=== PATIENT | male | born 1990 | race Caucasian/White ===

== ENCOUNTER 2017-07-13 12:42 | Inpatient (IN) | payer BC ==
[~2017-07-13] VITALS: Ht 170.2 cm; Wt 63.9 kg
[2017-07-13] MEDS ORDERED: SODIUM CHLORIDE 0.9% 1000ML 1,000 ML IV ONE ×3 (14:15→15:30)
--- NOTE | 2017-07-13 14:24 | EMERGENCY ROOM VISIT NOTE ---
History First contact with patient: 13:56 Chief Complaint: VOMITING Stated Complaint: VOMITING, DIZZY, CHILLS,PAIN FROM RIBS - SHOULDERS Nursing Triage Summary: patient to ed via triage for abdominal pain, states "I was seen at [facility] yesterday and they did an US of my gallbladder, they said everything looked good. Today I have worsened nausea, pain, and the chills. They told me to come here." History of Present Illness The patient is a 27 year old male who presents to the Emergency Room with complaints of right upper quadrant abdominal pain that started yesterday. He describes it as a dull ache. It radiates to the right side of his chest and also down the right side of his abdomen. He also complains of feeling feverish with chills. He did not take his temperature at home. He went to his family practice doctor yesterday. An ultrasound was performed of his gallbladder. He was told there was no abnormalities noted. The patient started vomiting this morning. He reports not able to keep anything down. He also reports a little bit of bright red blood with one of the episodes of emesis. He has been constipated this week only having one bowel movement in the last several days. He describes it as a kaitlin colored. No bright red blood in the stool. No dark stools. He denies any excessive alcohol use. He denies any known sick contacts. Review of Systems 10 system review performed and negative unless noted in HPI or below Past Medical/Surgical History History of a subdural hematoma secondary to blunt trauma when he was 17. Social History Smoking Status: Current Every Day Smoker Alcohol Use: occasionally Current/Historical Medications Scheduled Ciprofloxacin (Ciprofloxacin HCl), 500 MG PO BID Physical Exam Vital Signs Date Time Temp Pulse Resp B/P (MAP) Pulse Ox O2 Delivery O2 Flow Rate FiO2 07/13/17 18:08 95 16 136/83 95 Room Air 07/13/17 16:36 89 16 122/80 98 Room Air 07/13/17 14:46 85 15 114/73 100 Room Air 07/13/17 13:05 37.3 100 20 118/78 95 Room Air Physical Exam VITALS: Vitals are noted on the nurse's note and reviewed by myself. Vital signs stable. GENERAL: 27-year-old male, in no acute distress, nondiaphoretic, well-developed well-nourished. SKIN: The skin was without rashes, erythema, edema, or bruising. HEAD: Normocephalic atraumatic. EYES Conjunctivae without injection, sclerae without icterus. Extraocular movements intact. MOUTH: Mucous membranes somewhat dry. NECK: Supple without nuchal rigidity. No JVD. HEART: Regular rate and rhythm without murmurs gallops or rubs. LUNGS: Clear to auscultation bilaterally without wheezes, rales or rhonchi. No accessory muscle use. ABDOMEN: Bowel sounds hypoactive. Tenderness to palpation in the epigastric and right upper quadrant. No guarding or rebound tenderness. MUSCULOSKELETAL: No muscle atrophy, erythema, or edema noted. Strength 5/5 throughout. NEURO: Patient was alert and oriented to person place and time. Normal sensation to touch. No focal neurological deficits. Medical Decision & Procedures ER Provider Diagnostic Interpretation: ABD/PELVIS ORAL CONT ONLY CLINICAL HISTORY: 27 years-old Male presenting with RUQ epigastric pain, acute renal failure. TECHNIQUE: Multidetector CT of the abdomen and pelvis was performed without the use of intravenous contrast. IV contrast: None. A dose lowering technique was used consistent with the principles of ALARA (as low as reasonably achievable). COMPARISON: None. CT DOSE (mGy.cm): The estimated cumulative dose is 282.76 mGy.cm. 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 Lung bases: Lung bases clear. No pericardial or pleural effusion. Liver: Normal morphology. Borderline hepatic steatosis. Biliary: No gross biliary ductal dilatation allowing for noncontrast technique. Normal gallbladder. Pancreas: Normal noncontrast appearance. Spleen: Normal noncontrast appearance. The spleen measures 12 cm in maximal sagittal dimension. Adrenal glands: Normal. Kidneys and ureters: No nephrolithiasis. No hydronephrosis. Ureters grossly normal. Bladder: Normal. Pelvic organs: Prostate and seminal vesicles normal. Bowel: Normal appendix. No bowel obstruction. Peritoneal cavity: No free fluid or intraperitoneal gas. Vasculature: Normal noncontrast appearance. Lymph nodes: No gross lymphadenopathy allowing for noncontrast technique. Abdominal wall: Normal. Musculoskeletal: Normal. IMPRESSION: 1. No acute intra-abdominal pathology. No nephrolithiasis. No appendicitis. 2. Borderline hepatic steatosis. Electronically signed by: Jose Minor M.D. 07/13/2017 5:27 PM Dictated Date/Time: 07/13/2017 5:22 PM The status of this report is Signed. Draft = Not yet reviewed or approved by Radiologist. Signed = Reviewed and approved by Radiologist. Laboratory Results 07/13/17 14:36 Red Blood Count 5.11, Mean Corpuscular Volume 84.1, Mean Corpuscular Hemoglobin 30.9, Mean Corpuscular Hemoglobin Concent 36.7, Mean Platelet Volume 10.1, Neutrophils (%) (Auto) 81.0, Lymphocytes (%) (Auto) 9.3, Monocytes (%) (Auto) 9.0, Eosinophils (%) (Auto) 0.2, Basophils (%) (Auto) 0.2, Neutrophils # (Auto) 9.37, Lymphocytes # (Auto) 1.07, Monocytes # (Auto) 1.04, Eosinophils # (Auto) 0.02, Basophils # (Auto) 0.02 07/13/17 14:36 Test 07/13/17 14:36 07/13/17 16:35 07/13/17 18:23 White Blood Count 11.55 K/uL (4.8-10.8) Red Blood Count 5.11 M/uL (4.7-6.1) Hemoglobin 15.8 g/dL (14.0-18.0) Hematocrit 43.0 % (42-52) Mean Corpuscular Volume 84.1 fL (80-100) Mean Corpuscular Hemoglobin 30.9 pg (25-34) Mean Corpuscular Hemoglobin Concent 36.7 g/dl (32-36) Platelet Count 233 K/uL (130-400) Mean Platelet Volume 10.1 fL (7.4-10.4) Neutrophils (%) (Auto) 81.0 % Lymphocytes (%) (Auto) 9.3 % Monocytes (%) (Auto) 9.0 % Eosinophils (%) (Auto) 0.2 % Basophils (%) (Auto) 0.2 % Neutrophils # (Auto) 9.37 K/uL (1.4-6.5) Lymphocytes # (Auto) 1.07 K/uL (1.2-3.4) Monocytes # (Auto) 1.04 K/uL (0.11-0.59) Eosinophils # (Auto) 0.02 K/uL (0-0.5) Basophils # (Auto) 0.02 K/uL (0-0.2) RDW Standard Deviation 37.6 fL (36.4-46.3) RDW Coefficient of Variation 12.2 % (11.5-14.5) Immature Granulocyte % (Auto) 0.3 % Immature Granulocyte # (Auto) 0.03 K/uL (0.00-0.02) Anion Gap 9.0 mmol/L (3-11) Est Creatinine Clear Calc Drug Dose 43.6 ml/min Estimated GFR () 43.5 Estimated GFR (Non- 37.5 BUN/Creatinine Ratio 7.0 (10-20) Calcium Level 9.9 mg/dl (8.5-10.1) Total Bilirubin 0.6 mg/dl (0.2-1) Aspartate Amino Transf (AST/SGOT) 30 U/L (15-37) Alanine Aminotransferase (ALT/SGPT) 35 U/L (12-78) Alkaline Phosphatase 119 U/L (45-117) Total Protein 8.3 gm/dl (6.4-8.2) Albumin 4.2 gm/dl (3.4-5.0) Globulin 4.1 gm/dl (2.5-4.0) Albumin/Globulin Ratio 1.0 (0.9-2) Amylase Level 65 U/L (25-115) Lipase 103 U/L (73-393) Urine Color YELLOW Urine Appearance CLEAR (CLEAR) Urine pH 5.5 (4.5-7.5) Urine Specific [place] 1.014 (1.000-1.030) Urine Protein 2+ (NEG) Urine Glucose (UA) NEG (NEG) Urine Ketones TRACE (NEG) Urine Occult Blood TRACE (NEG) Urine Nitrite NEG (NEG) Urine Bilirubin NEG (NEG) Urine Urobilinogen NEG (NEG) Urine Leukocyte Esterase NEG (NEG) Urine WBC (Auto) 1-5 /hpf (0-5) Urine RBC (Auto) 0-4 /hpf (0-4) Urine Hyaline Casts (Auto) 5-10 /lpf (0-5) Urine Epithelial Cells (Auto) 20-30 /lpf (0-5) Urine Bacteria (Auto) NEG (NEG) Medications Administered Medications (Trade) Dose Ordered Sig/Nati Route Start Time Stop Time Status Last Admin Dose Admin Sodium Chloride 1,000 ml @ 999 mls/hr Q1H1M ONCE IV 8/25/17 14:15 07/13/17 15:15 DC 07/13/17 14:43 999 MLS/HR Sodium Chloride 1,000 ml @ 999 mls/hr Q1H1M ONCE IV 07/13/17 14:15 07/13/17 15:15 DC 07/13/17 14:44 999 MLS/HR Ondansetron HCl (Zofran Inj) 4 mg Q2H PRN IV 07/13/17 14:15 08/12/17 14:14 07/13/17 17:27 4 MG Sodium Chloride 1,000 ml @ 999 mls/hr Q1H1M ONCE IV 07/13/17 15:30 07/13/17 16:30 DC 07/13/17 15:41 999 MLS/HR ED Course Patient was seen and examined Vital signs including blood pressure were reviewed medications list was verified with patient Labs were obtained, and a saline lock was established The patient was given Zofran 4 mg IV. He was hydrated with 2 L of normal saline. Imaging was performed and reviewed The patient was given additional dose of Zofran 4 mg IV The findings were discussed with the patient and the patient's mother The case was discussed with my supervising physician in addition to case management [facility] the patient for further workup and treatment Medical Decision DIFFERENTIAL DIAGNOSIS: Gastroenteritis, Hepatitis, cholecystitis, cholangitis, biliary colic, pancreatitis, appendicitis, inguinal hernia, nephrolithiasis, inflammatory bowel disease, mesenteric adenitis, peptic ulcer disease, GERD, gastritis, pancreatitis,, bowel obstruction, splenic infarct, diverticulitis, mesenteric ischemia, metabolic, peritonitis, among others. This patient is a pleasant 27-year-old male that presented to the emergency department with complaints of right upper and epigastric abdominal pain radiating into his chest. On exam, the patient did have some tenderness in the right upper quadrant and epigastric region. He had a mild elevation in his white blood cell count. He did have a significant elevation in his creatinine. The etiology of this is unknown. It did not appear to be dehydration as his BUN is normal. Because of this and the fact that the patient was still nauseated, I do not feel comfortable sending him home. I believe he needs further workup for his acute renal failure as an inpatient. This chart was completed in part utilizing Dragon Speech Voice Recognition software. Attempts were made to minimize the grammatical errors, random word insertions, pronoun errors and incomplete sentences. Any formal questions or concerns about the content, text or information contained within the body of this dictation should be directly addressed to the provider for clarification. Medication Reconcilliation Current Medication List: was personally reviewed by me Blood Pressure Screening Patient's blood pressure: Normal blood pressure Consults [facility] Primary Impression: Acute renal failure Departure Information Referrals Jose Minaya M.D. (PCP) Patient Instructions My [facility]
[2017-07-13] MEDS: ONDANSETRON INJ 2 MG/ML 2 ML VIAL IV PRN ×2 (14:43→17:27)
[2017-07-13 14:50] LABS: BASO % 0.2 %; BASO ABS # 0.02 K/uL (0-0.2); COMPLETE YES; EOS % 0.2 %; IG% 0.3 %; LYMPH % 9.3 %; LYMPH ABS # 1.07 K/uL (1.2-3.4); MEAN CELL VOLUME 84.1 fL (80-100); MEAN CORPUSCULAR HEMOGLOBIN 30.9 pg (25-34); MEAN CORPUSCULAR HGB CONC 36.7 g/dl (32-36); MEAN PLATELET VOLUME 10.1 fL (7.4-10.4); PLATELET COUNT 233 K/uL (130-400); RED BLOOD COUNT 5.11 M/uL (4.7-6.1); WHITE BLOOD COUNT 11.55 K/uL (4.8-10.8)
[2017-07-13] MEDS ORDERED: CPR/500 PO (14:52)
[2017-07-13 15:15] LABS: CALCIUM 9.9 mg/dl (8.5-10.1); CREATININE 2.3 mg/dl (0.60-1.40)
[2017-07-13 16:59] LABS: URINE APPEARANCE CLEAR (CLEAR); URINE BILIRUBIN NEG (NEG); URINE COLOR YELLOW; URINE EPITHELIAL CELL AUTO 20-30 /lpf (0-5); URINE NITRITE NEG (NEG); URINE PH 5.5 (4.5-7.5); URINE SPECIFIC GRAVITY 1.014 (1.000-1.030); UROBILINOGEN NEG (NEG)
[2017-07-13 17:04] LABS: MANUAL MICROSCOPIC REQUIRED? NO; REVIEW REQ? NO
--- NOTE | 2017-07-13 17:28 | DIAGNOSTIC IMAGING REPORT ---
ABD/PELVIS ORAL CONT ONLY CLINICAL HISTORY: 27 years-old Male presenting with RUQ epigastric pain, acute renal failure. TECHNIQUE: Multidetector CT of the abdomen and pelvis was performed without the use of intravenous contrast. IV contrast: None. A dose lowering technique was used consistent with the principles of ALARA (as low as reasonably achievable). COMPARISON: None. CT DOSE (mGy.cm): The estimated cumulative dose is 282.76 mGy.cm. 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 Lung bases: Lung bases clear. No pericardial or pleural effusion. Liver: Normal morphology. Borderline hepatic steatosis. Biliary: No gross biliary ductal dilatation allowing for noncontrast technique. Normal gallbladder. Pancreas: Normal noncontrast appearance. Spleen: Normal noncontrast appearance. The spleen measures 12 cm in maximal sagittal dimension. Adrenal glands: Normal. Kidneys and ureters: No nephrolithiasis. No hydronephrosis. Ureters grossly normal. Bladder: Normal. Pelvic organs: Prostate and seminal vesicles normal. Bowel: Normal appendix. No bowel obstruction. Peritoneal cavity: No free fluid or intraperitoneal gas. Vasculature: Normal noncontrast appearance. Lymph nodes: No gross lymphadenopathy allowing for noncontrast technique. Abdominal wall: Normal. Musculoskeletal: Normal. IMPRESSION: 1. No acute intra-abdominal pathology. No nephrolithiasis. No appendicitis. 2. Borderline hepatic steatosis. Electronically signed by: Jose Minor M.D. 07/13/2017 5:27 PM Dictated Date/Time: 07/13/2017 5:22 PM
[2017-07-13] MEDS ORDERED: MAGNESIUM HYDROXIDE SUSP 30 ML UDC PO PRN (19:15)
[2017-07-13] MEDS ORDERED: ONDANSETRON INJ 2 MG/ML 2 ML VIAL IV PRN (19:15)
[2017-07-13] MEDS ORDERED: PROMETHAZINE HCL INJ 12.5 MG in SODIUM CHLORIDE 0.9% 50ML 50 ML IV PRN (19:15)
[2017-07-13] MEDS ORDERED: ALUMINUM/MAGNESIUM/SIMETH (MAALOX MAX) 30 ML UDC PO PRN (19:15)
--- NOTE | 2017-07-13 19:37 | History and Physical ---
History & Physical Date & Time of Service: Jul 13, 2017 at 19:24 Chief Complaint: Vomiting, Dizzy, Chills,Pain From Ribs - Shoulders Primary Care Physician: Jose Minaya M.D. History of Present Illness Source: patient, family, clinic records This is a 27 year old male with PMH of possible chlamydia infection in March, presents today to the ER due to one day history of RUQ abdominal pain and significant nausea/vomiting. States he went to his PCP yesterday for a nonspecific R sided rib and abdominal pain. He had lab work done at that time; showing no significant findings. RUQ U/S was also done showing no signs of acute cholecystitis. Patient states this morning he had significant vomiting/ nausea; cannot keep anything down including the contrast for his CT that was done in the ER. Creatinine noted to be significantly elevated at 2.3. Does not take any medications. Denies eating anything unusual. No travel history. Does occasionally use marijuana, but states last use was about one month prior. Drinks EtOH socially. Denies any other drug use. No fevers/chills. Social History Smoking Status: Current Every Day Smoker Allergies Coded Allergies: No Known Allergies (Unverified , 07/13/17) Home Medications Scheduled Ciprofloxacin (Ciprofloxacin HCl), 500 MG PO BID Review of Systems Constitutional: No fever, No chills, No weakness Respiratory: No cough, No sputum, No shortness of breath, No dyspnea on exertion Cardiovascular: No chest pain Abdomen: + pain, + nausea, + vomiting, No diarrhea, No constipation, No GI bleeding Musculoskeletal: No joint pain Genitourinary - Male: No hematuria, No dysuria, No urinary frequency, No urinary urgency Neurologic: No numbness/tingling, No balance problems Psychiatric: No depression symptoms, No anxiety, No insomnia Endocrine: No fatigue Hematologic / Lymphatic: No abnormal bleeding/bruising Allergic / Immunologic: No environmental allergies, No seasonal allergies Physical Exam Vital Signs Date Time Temp Pulse Resp B/P (MAP) Pulse Ox O2 Delivery O2 Flow Rate FiO2 07/13/17 18:08 95 16 136/83 95 Room Air 07/13/17 16:36 89 16 122/80 98 Room Air 07/13/17 14:46 85 15 114/73 100 Room Air 07/13/17 13:05 37.3 100 20 118/78 95 Room Air General Appearance: no apparent distress Head: normocephalic, atraumatic Eyes: normal inspection ENT: hearing grossly normal Respiratory/Chest: lungs clear, normal breath sounds, no respiratory distress, no accessory muscle use Cardiovascular: regular rate, rhythm, no edema, no murmur Abdomen/GI: normal bowel sounds, soft, + tenderness (mild tenderness at the RUQ , worse with inspiration) Extremities/Musculoskelatal: normal capillary refill, no pedal edema Neurologic/Psych: no motor/sensory deficits, alert, normal mood/affect Skin: normal color Lymphatic: no adenopathy Diagnostics Laboratory Results Results Past 24 Hours Test 07/13/17 14:36 07/13/17 16:35 07/13/17 18:23 Range/Units White Blood Count 11.55 4.8-10.8 K/uL Red Blood Count 5.11 4.7-6.1 M/uL Hemoglobin 15.8 14.0-18.0 g/dL Hematocrit 43.0 42-52 % Mean Corpuscular Volume 84.1 80-100 fL Mean Corpuscular Hemoglobin 30.9 25-34 pg Mean Corpuscular Hemoglobin Concent 36.7 32-36 g/dl Platelet Count 233 130-400 K/uL Mean Platelet Volume 10.1 7.4-10.4 fL Neutrophils (%) (Auto) 81.0 % Lymphocytes (%) (Auto) 9.3 % Monocytes (%) (Auto) 9.0 % Eosinophils (%) (Auto) 0.2 % Basophils (%) (Auto) 0.2 % Neutrophils # (Auto) 9.37 1.4-6.5 K/uL Lymphocytes # (Auto) 1.07 1.2-3.4 K/uL Monocytes # (Auto) 1.04 0.11-0.59 K/uL Eosinophils # (Auto) 0.02 0-0.5 K/uL Basophils # (Auto) 0.02 0-0.2 K/uL RDW Standard Deviation 37.6 36.4-46.3 fL RDW Coefficient of Variation 12.2 11.5-14.5 % Immature Granulocyte % (Auto) 0.3 % Immature Granulocyte # (Auto) 0.03 0.00-0.02 K/uL Sodium Level 137 136-145 mmol/L Potassium Level 4.0 3.5-5.1 mmol/L Chloride Level 102 98-107 mmol/L Carbon Dioxide Level 26 21-32 mmol/L Anion Gap 9.0 3-11 mmol/L Blood Urea Nitrogen 16 7-18 mg/dl Creatinine 2.30 0.60-1.40 mg/dl Est Creatinine Clear Calc Drug Dose 43.6 ml/min Estimated GFR () 43.5 Estimated GFR (Non- 37.5 BUN/Creatinine Ratio 7.0 10-20 Random Glucose 96 70-99 mg/dl Calcium Level 9.9 8.5-10.1 mg/dl Total Bilirubin 0.6 0.2-1 mg/dl Aspartate Amino Transf (AST/SGOT) 30 15-37 U/L Alanine Aminotransferase (ALT/SGPT) 35 12-78 U/L Alkaline Phosphatase 119 45-117 U/L Total Protein 8.3 6.4-8.2 gm/dl Albumin 4.2 3.4-5.0 gm/dl Globulin 4.1 2.5-4.0 gm/dl Albumin/Globulin Ratio 1.0 0.9-2 Amylase Level 65 25-115 U/L Lipase 103 73-393 U/L Urine Color YELLOW Urine Appearance CLEAR CLEAR Urine pH 5.5 4.5-7.5 Urine Specific [place] 1.014 1.000-1.030 Urine Protein 2+ NEG Urine Glucose (UA) NEG NEG Urine Ketones TRACE NEG Urine Occult Blood TRACE NEG Urine Nitrite NEG NEG Urine Bilirubin NEG NEG Urine Urobilinogen NEG NEG Urine Leukocyte Esterase NEG NEG Urine WBC (Auto) 1-5 0-5 /hpf Urine RBC (Auto) 0-4 0-4 /hpf Urine Hyaline Casts (Auto) 5-10 0-5 /lpf Urine Epithelial Cells (Auto) 20-30 0-5 /lpf Urine Bacteria (Auto) NEG NEG Diagnostic Radiology ABD/PELVIS ORAL CONT ONLY CLINICAL HISTORY: 27 years-old Male presenting with RUQ epigastric pain, acute renal failure. TECHNIQUE: Multidetector CT of the abdomen and pelvis was performed without the use of intravenous contrast. IV contrast: None. A dose lowering technique was used consistent with the principles of ALARA (as low as reasonably achievable). COMPARISON: None. CT DOSE (mGy.cm): The estimated cumulative dose is 282.76 mGy.cm. 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 Lung bases: Lung bases clear. No pericardial or pleural effusion. Liver: Normal morphology. Borderline hepatic steatosis. Biliary: No gross biliary ductal dilatation allowing for noncontrast technique. Normal gallbladder. Pancreas: Normal noncontrast appearance. Spleen: Normal noncontrast appearance. The spleen measures 12 cm in maximal sagittal dimension. Adrenal glands: Normal. Kidneys and ureters: No nephrolithiasis. No hydronephrosis. Ureters grossly normal. Bladder: Normal. Pelvic organs: Prostate and seminal vesicles normal. Bowel: Normal appendix. No bowel obstruction. Peritoneal cavity: No free fluid or intraperitoneal gas. Vasculature: Normal noncontrast appearance. Lymph nodes: No gross lymphadenopathy allowing for noncontrast technique. Abdominal wall: Normal. Musculoskeletal: Normal. IMPRESSION: 1. No acute intra-abdominal pathology. No nephrolithiasis. No appendicitis. 2. Borderline hepatic steatosis. Impression Assessment and Plan This is a 27 year old who presents with nausea/vomiting and RUQ abdominal pain Nausea/Vomiting RUQ abdominal pain RUQ U/S done on 07/[address] does not show any acute process nausea/vomiting could be secondary to marijuana use will check urine for marijuana Zofran PRN Phenergan PRN IVFs holding off on antibiotics; no sign of infection GI consultation for further input Acute Kidney Injury secondary to dehydration, vomiting giving IVFs recheck in AM FULL CODE VTE Prophylaxis VTE Risk Assessment Done? Y/N: Yes Risk Level: Very Low
[2017-07-13 20:15] LABS: ACETAMINOPHEN < 2 ug/ml (10-30)
[2017-07-13] MEDS: SODIUM CHLORIDE 0.9% 1000ML 1,000 ML IV SCH (20:26)
[2017-07-13 20:45] VITALS: TEMP 37; O2SAT 96; Ht 170.2 cm; Wt 63.9 kg
[2017-07-13 23:34] VITALS: BP 110/70; PULSE 76; TEMP 36.8; O2SAT 97
[2017-07-14] VITALS: O2SAT 96
[2017-07-14] MEDS: SODIUM CHLORIDE 0.9% 1000ML 1,000 ML IV SCH ×2 (04:54→14:43)
[2017-07-14 08:00] VITALS: BP 100/64; PULSE 65; TEMP 36.8; O2SAT 92
[2017-07-14 09:34] LABS: HEMATOCRIT 36.5 % (42-52); MEAN CELL VOLUME 85.9 fL (80-100); MEAN CORPUSCULAR HEMOGLOBIN 30.1 pg (25-34); MEAN CORPUSCULAR HGB CONC 35.1 g/dl (32-36); MEAN PLATELET VOLUME 10.1 fL (7.4-10.4); PLATELET COUNT 216 K/uL (130-400); RED BLOOD COUNT 4.25 M/uL (4.7-6.1); WHITE BLOOD COUNT 10.39 K/uL (4.8-10.8)
[2017-07-14 09:46] LABS: BUN/CREATININE RATIO 8.6 (10-20); CALCIUM 8.3 mg/dl (8.5-10.1); CREATININE 1.8 mg/dl (0.60-1.40); POTASSIUM 3.6 mmol/L (3.5-5.1)
[2017-07-14 14:26] VITALS: BP 96/69; PULSE 70; TEMP 36.8; O2SAT 97
--- NOTE | 2017-07-14 16:01 | Medical Consult ---
Consultation Note Date of Service Jul 14, 2017. Consultation Note Reason for consult: abd pain 27 yo M in [place] until , when he developed severe sharp/cramping RUQ pain radiating into chest, malaise, subj fever. He began to have vomiting on Sunday, and was unable to tolerate PO. MJ use - last about 3 weeks ago; no other illegal drugs. Occ etOH - 6 drinks/ week. No chronic abd pain or h/o similar symptoms. Last BM on Sun, but passing flatus. Seen by PCP on - Uls WNL, given empiric cipro. Presented to ER yesterday - on admission, creat elevated, CT a/p without IV contrast unremarkable. Treated with bowel rest overnight - at present, his nausea is improved, he is tolerating sips of PO. His pain is persistent, although he has not taken any analgesics. Labs show improvement in creat and drop in Hgb. Social History Smoking Status: Current Every Day Smoker Allergies Coded Allergies: No Known Allergies (Unverified , 07/13/17) Home Medications Scheduled Ciprofloxacin (Ciprofloxacin HCl), 500 MG PO BID Review of Systems Constitutional: No fever, No chills, No weakness Respiratory: No cough, No sputum, No shortness of breath, No dyspnea on exertion Cardiovascular: No chest pain Abdomen: + pain, + nausea, + vomiting, No diarrhea, No constipation, No GI bleeding Musculoskeletal: No joint pain Genitourinary - Male: No hematuria, No dysuria, No urinary frequency, No urinary urgency Neurologic: No numbness/tingling, No balance problems Psychiatric: No depression symptoms, No anxiety, No insomnia Endocrine: No fatigue Hematologic / Lymphatic: No abnormal bleeding/bruising Allergic / Immunologic: No environmental allergies, No seasonal allergies Physical Ex - H&P Physical Exam Vital Signs Date Time Temp Pulse Resp B/P (MAP) Pulse Ox O2 Delivery O2 Flow Rate FiO2 07/14/17 14:26 36.8 70 18 96/69 (78) 97 Room Air 07/14/17 08:00 36.8 65 18 100/64 (76) 92 Room Air 07/14/17 08:00 92 Room Air 07/14/17 00:00 96 Room Air 07/13/17 23:34 36.8 76 18 110/70 (83) 97 Room Air 07/13/17 20:45 37.0 96 Room Air 07/13/17 19:42 73 18 114/78 95 Room Air 07/13/17 19:42 73 18 114/78 95 07/13/17 18:08 95 16 136/83 95 Room Air 07/13/17 16:36 89 16 122/80 98 Room Air HEENT: oc clear CV: RRR Chest: Tender in Right chest wall Abd: soft NT Extrem: no edema Diagnostics - H&P Diagnostics Laboratory Results Last 24 Hours Test 07/13/17 16:35 07/13/17 19:34 07/14/17 08:45 Urine Color YELLOW Urine Appearance CLEAR Urine pH 5.5 Urine Specific [place] 1.014 Urine Protein 2+ Urine Glucose (UA) NEG Urine Ketones TRACE Urine Occult Blood TRACE Urine Nitrite NEG Urine Bilirubin NEG Urine Urobilinogen NEG Urine Leukocyte Esterase NEG Urine WBC (Auto) 1-5 /hpf Urine RBC (Auto) 0-4 /hpf Urine Hyaline Casts (Auto) 5-10 /lpf Urine Epithelial Cells (Auto) 20-30 /lpf Urine Bacteria (Auto) NEG Salicylates Level < 1.7 mg/dl Acetaminophen Level < 2 ug/ml White Blood Count 10.39 K/uL Red Blood Count 4.25 M/uL Hemoglobin 12.8 g/dL Hematocrit 36.5 % Mean Corpuscular Volume 85.9 fL Mean Corpuscular Hemoglobin 30.1 pg Mean Corpuscular Hemoglobin Concent 35.1 g/dl RDW Standard Deviation 39.1 fL RDW Coefficient of Variation 12.4 % Platelet Count 216 K/uL Mean Platelet Volume 10.1 fL Sodium Level 138 mmol/L Potassium Level 3.6 mmol/L Chloride Level 105 mmol/L Carbon Dioxide Level 27 mmol/L Anion Gap 6.0 mmol/L Blood Urea Nitrogen 16 mg/dl Creatinine 1.80 mg/dl Est Creatinine Clear Calc Drug Dose 55.7 ml/min Estimated GFR () 58.5 Estimated GFR (Non- 50.5 BUN/Creatinine Ratio 8.6 Random Glucose 119 mg/dl Calcium Level 8.3 mg/dl Magnesium Level 2.0 mg/dl Diagnostic Radiology ABD/PELVIS ORAL CONT ONLY CLINICAL HISTORY: 27 years-old Male presenting with RUQ epigastric pain, acute renal failure. TECHNIQUE: Multidetector CT of the abdomen and pelvis was performed without the use of intravenous contrast. IV contrast: None. A dose lowering technique was used consistent with the principles of ALARA (as low as reasonably achievable). COMPARISON: None. CT DOSE (mGy.cm): The estimated cumulative dose is 282.76 mGy.cm. FINDINGS: [employer] topogram: Unremarkable. Lung bases: Lung bases clear. No pericardial or pleural effusion. Liver: Normal morphology. Borderline hepatic steatosis. Biliary: No gross biliary ductal dilatation allowing for noncontrast technique. Normal gallbladder. Pancreas: Normal noncontrast appearance. Spleen: Normal noncontrast appearance. The spleen measures 12 cm in maximal sagittal dimension. Adrenal glands: Normal. Kidneys and ureters: No nephrolithiasis. No hydronephrosis. Ureters grossly normal. Bladder: Normal. Pelvic organs: Prostate and seminal vesicles normal. Bowel: Normal appendix. No bowel obstruction. Peritoneal cavity: No free fluid or intraperitoneal gas. Vasculature: Normal noncontrast appearance. Lymph nodes: No gross lymphadenopathy allowing for noncontrast technique. Abdominal wall: Normal. Musculoskeletal: Normal. IMPRESSION: 1. No acute intra-abdominal pathology. No nephrolithiasis. No appendicitis. 2. Borderline hepatic steatosis. A/P: RUQ pain, - Unclear etiology of his symptoms - related to MJ? Gastroenteritis? acid- peptic or biliary disease? - His symptoms appear improving -- would defer further w/u unless his symptoms seem persistent or unresolving. Will adv diet as tolerated and follow with recurrence of his symptoms.
--- NOTE | 2017-07-14 17:09 | Progress Note ---
Medicine Progress Note Date & Time of Visit: Jul 14, 2017 at 12:57. Subjective tolerating clears afebrile overnight improved since admission denies diarrhea and no BM x 5 days sharp chest pain in R chest area, reproducible on palpation and worse with deep breathing/changing positions in bed. Objective Last 8 Hrs Date Time Temp Pulse Resp B/P (MAP) Pulse Ox O2 Delivery O2 Flow Rate FiO2 07/14/17 08:00 36.8 65 18 100/64 (76) 92 Room Air 07/14/17 08:00 92 Room Air Physical Exam: GEN: WNWD, in no acute distress, alert and appropriate HEENT: NC/AT, normal sclerae, MMM CARDIO: reg rate, S1/2 heard without m/g/r CHEST: significant TTP on palpation of R parasternal border. Non-tender in axillary intercostals. No rash seen on chest wall. LUNGS: CTA bilaterally, no crackles, rales or wheezes, good diaphragmatic excursion ABD: soft, slight TTP just under R lower ribs in RUQ area EXTREMITY: RP and DP palpable 2+ bilat, no LE swelling or edema, extremities are warm and well-perfused NEURO: CN 2-12 grossly intact, no gross focal deficits MUSC: 5/5 strength throughout, no focal deficits SKIN: warm and dry Laboratory Results: 07/14/17 08:45 07/14/17 08:45 Test 07/13/17 00:00 07/13/17 14:36 07/13/17 16:35 07/13/17 19:34 Immature Granulocyte % (Auto) 0.3 % White Blood Count 11.55 K/uL (4.8-10.8) Red Blood Count 5.11 M/uL (4.7-6.1) Hemoglobin 15.8 g/dL (14.0-18.0) Hematocrit 43.0 % (42-52) Mean Corpuscular Volume 84.1 fL (80-100) Mean Corpuscular Hemoglobin 30.9 pg (25-34) Mean Corpuscular Hemoglobin Concent 36.7 g/dl (32-36) Platelet Count 233 K/uL (130-400) Mean Platelet Volume 10.1 fL (7.4-10.4) Neutrophils (%) (Auto) 81.0 % Lymphocytes (%) (Auto) 9.3 % Monocytes (%) (Auto) 9.0 % Eosinophils (%) (Auto) 0.2 % Basophils (%) (Auto) 0.2 % Neutrophils # (Auto) 9.37 K/uL (1.4-6.5) Lymphocytes # (Auto) 1.07 K/uL (1.2-3.4) Monocytes # (Auto) 1.04 K/uL (0.11-0.59) Eosinophils # (Auto) 0.02 K/uL (0-0.5) Basophils # (Auto) 0.02 K/uL (0-0.2) Immature Granulocyte # (Auto) 0.03 K/uL (0.00-0.02) Total Bilirubin 0.6 mg/dl (0.2-1) Aspartate Amino Transf (AST/SGOT) 30 U/L (15-37) Alanine Aminotransferase (ALT/SGPT) 35 U/L (12-78) Alkaline Phosphatase 119 U/L (45-117) Total Protein 8.3 gm/dl (6.4-8.2) Albumin 4.2 gm/dl (3.4-5.0) Globulin 4.1 gm/dl (2.5-4.0) Albumin/Globulin Ratio 1.0 (0.9-2) Amylase Level 65 U/L (25-115) Lipase 103 U/L (73-393) Urine Color YELLOW Urine Appearance CLEAR (CLEAR) Urine pH 5.5 (4.5-7.5) Urine Specific [place] 1.014 (1.000-1.030) Urine Protein 2+ (NEG) Urine Glucose (UA) NEG (NEG) Urine Ketones TRACE (NEG) Urine Occult Blood TRACE (NEG) Urine Nitrite NEG (NEG) Urine Bilirubin NEG (NEG) Urine Urobilinogen NEG (NEG) Urine Leukocyte Esterase NEG (NEG) Urine WBC (Auto) 1-5 /hpf (0-5) Urine RBC (Auto) 0-4 /hpf (0-4) Urine Hyaline Casts (Auto) 5-10 /lpf (0-5) Urine Epithelial Cells (Auto) 20-30 /lpf (0-5) Urine Bacteria (Auto) NEG (NEG) Salicylates Level < 1.7 mg/dl (2.8-20) Acetaminophen Level < 2 ug/ml (10-30) Test 07/14/17 08:45 Red Blood Count 4.25 M/uL (4.7-6.1) Mean Corpuscular Volume 85.9 fL (80-100) Mean Corpuscular Hemoglobin 30.1 pg (25-34) Mean Corpuscular Hemoglobin Concent 35.1 g/dl (32-36) RDW Standard Deviation 39.1 fL (36.4-46.3) RDW Coefficient of Variation 12.4 % (11.5-14.5) Mean Platelet Volume 10.1 fL (7.4-10.4) Anion Gap 6.0 mmol/L (3-11) Est Creatinine Clear Calc Drug Dose 55.7 ml/min Estimated GFR () 58.5 Estimated GFR (Non- 50.5 BUN/Creatinine Ratio 8.6 (10-20) Calcium Level 8.3 mg/dl (8.5-10.1) Magnesium Level 2.0 mg/dl (1.8-2.4) Last 24 Hours Test 07/13/17 14:36 07/13/17 16:35 07/13/17 19:34 07/14/17 08:45 White Blood Count 11.55 K/uL 10.39 K/uL Red Blood Count 5.11 M/uL 4.25 M/uL Hemoglobin 15.8 g/dL 12.8 g/dL Hematocrit 43.0 % 36.5 % Mean Corpuscular Volume 84.1 fL 85.9 fL Mean Corpuscular Hemoglobin 30.9 pg 30.1 pg Mean Corpuscular Hemoglobin Concent 36.7 g/dl 35.1 g/dl Platelet Count 233 K/uL 216 K/uL Mean Platelet Volume 10.1 fL 10.1 fL Neutrophils (%) (Auto) 81.0 % Lymphocytes (%) (Auto) 9.3 % Monocytes (%) (Auto) 9.0 % Eosinophils (%) (Auto) 0.2 % Basophils (%) (Auto) 0.2 % Neutrophils # (Auto) 9.37 K/uL Lymphocytes # (Auto) 1.07 K/uL Monocytes # (Auto) 1.04 K/uL Eosinophils # (Auto) 0.02 K/uL Basophils # (Auto) 0.02 K/uL RDW Standard Deviation 37.6 fL 39.1 fL RDW Coefficient of Variation 12.2 % 12.4 % Immature Granulocyte % (Auto) 0.3 % Immature Granulocyte # (Auto) 0.03 K/uL Sodium Level 137 mmol/L 138 mmol/L Potassium Level 4.0 mmol/L 3.6 mmol/L Chloride Level 102 mmol/L 105 mmol/L Carbon Dioxide Level 26 mmol/L 27 mmol/L Anion Gap 9.0 mmol/L 6.0 mmol/L Blood Urea Nitrogen 16 mg/dl 16 mg/dl Creatinine 2.30 mg/dl 1.80 mg/dl Est Creatinine Clear Calc Drug Dose 43.6 ml/min 55.7 ml/min Estimated GFR () 43.5 58.5 Estimated GFR (Non- 37.5 50.5 BUN/Creatinine Ratio 7.0 8.6 Random Glucose 96 mg/dl 119 mg/dl Calcium Level 9.9 mg/dl 8.3 mg/dl Total Bilirubin 0.6 mg/dl Aspartate Amino Transf (AST/SGOT) 30 U/L Alanine Aminotransferase (ALT/SGPT) 35 U/L Alkaline Phosphatase 119 U/L Total Protein 8.3 gm/dl Albumin 4.2 gm/dl Globulin 4.1 gm/dl Albumin/Globulin Ratio 1.0 Amylase Level 65 U/L Lipase 103 U/L Urine Color YELLOW Urine Appearance CLEAR Urine pH 5.5 Urine Specific [place] 1.014 Urine Protein 2+ Urine Glucose (UA) NEG Urine Ketones TRACE Urine Occult Blood TRACE Urine Nitrite NEG Urine Bilirubin NEG Urine Urobilinogen NEG Urine Leukocyte Esterase NEG Urine WBC (Auto) 1-5 /hpf Urine RBC (Auto) 0-4 /hpf Urine Hyaline Casts (Auto) 5-10 /lpf Urine Epithelial Cells (Auto) 20-30 /lpf Urine Bacteria (Auto) NEG Salicylates Level < 1.7 mg/dl Acetaminophen Level < 2 ug/ml Magnesium Level 2.0 mg/dl Assessment & Plan This is a 27 year old who presents with nausea/vomiting and RUQ abdominal pain. He began with RUQ/lower rib pain that was dull on Sun. 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 He went to see PCP who gave a course of cipro, checked him for GC and chlamydia both which were negative, and performed a RUQ us which revealed no evidence of cholecystitis or cholelithiasis but did reveal some biliary sludge. Later that night he experienced chills and began vomiting and subsequently presented the following day to the ER intolerant of PO. He had no fevers, no recent MJ use (last was 4 weeks ago and he denies lacing it with anything or using other illicit drugs), and denies sick contacts or eating bad food. He has a long-standing h/o heartburn and took PPI in the past but is not on this any longer. Today, after bowel rest and some IVF, he is feeling better and tolerating clear liquids but still reports some sharp chest pain. On examination there is no rash present and his intercostals are exquisitely tender. This is consistent with costochondritis and with his reports of increased pain with deep breathing. He is low risk for PE and ACS, although those etiologies were considered. He is athletic and has been working out without a worsening of his chest pain. Other etiologies include but are not limited to gastric or duodenal ulcer, viral gastritis, other biliary tract disease, pleuritis, MJ use, vaporizer cigarette use, pericarditis or myositis. 1. Hyperemesis-resolved and tolerating clear liquids. Advancing diet to regular. Cont IVF until tolerating PO. 2. RUQ/R chest pain-consistent with hyperemesis and resulting costochondritis, however, other pathologies are possible as above. As patient is improved, will defer further workup at this time. Counseled to avoid nicotine vaporizer and MJ in the future because of health risks. 3. WADE-likely 2/2 dehydration and vomiting. IVFs ongoing and creat has improved from 2.3 to 1.8. Cont IVF until reliably tolerating PO 4. Marajuana use-hyperemesis may be related to use. FULL CODE DVT proph: ambulatory, not indicated. Dispo-likely to home in am. Candie Kat DO [facility] Hospitalist Consultants: [facility] Current Inpatient Medications: Current Inpatient Medications Medications (Trade) Dose Ordered Sig/Nati Route Start Time Stop Time Status Last Admin Dose Admin Ondansetron HCl (Zofran Inj) 4 mg Q4H PRN IV 07/13/17 19:15 08/12/17 19:14 Promethazine HCl 12.5 mg/Sodium Chloride 50.5 ml @ 204 mls/hr Q6H PRN IV 07/13/17 19:15 08/12/17 19:14 Al Hydrox/Mg Hydrox/Simethicone (Maalox Max Susp) 15 ml Q4H PRN PO 07/13/17 19:15 08/12/17 19:14 Magnesium Hydroxide (Milk Of Magnesia Susp) 30 ml Q6H PRN PO 07/13/17 19:15 08/12/17 19:14 Sodium Chloride 1,000 ml @ 100 mls/hr Q10H IV 07/13/17 19:45 08/12/17 19:44 07/14/17 04:54 100 MLS/HR
[2017-07-14 20:00] VITALS: O2SAT 96
[2017-07-14] MEDS: PANTOprazole SOD 40 MG TAB PO SCH (20:42)
[2017-07-15] VITALS: O2SAT 96
[2017-07-15] MEDS: SODIUM CHLORIDE 0.9% 1000ML 1,000 ML IV SCH ×2 (00:16→10:40)
[2017-07-15 00:18] VITALS: BP 103/63; PULSE 68; TEMP 36.9; O2SAT 97
[2017-07-15] MEDS ORDERED: ACETAMINOPHEN 325 MG TAB PO PRN (00:45)
[2017-07-15] MEDS: PANTOprazole SOD 40 MG TAB PO SCH (07:32)
[2017-07-15 07:55] VITALS: BP 115/71; PULSE 63; TEMP 36.6; O2SAT 100
[2017-07-15 08:00] VITALS: O2SAT 100
[2017-07-15 08:46] LABS: BUN/CREATININE RATIO 10.1 (10-20); CALCIUM 8.6 mg/dl (8.5-10.1); CREATININE 1.2 mg/dl (0.60-1.40); MAGNESIUM 2.1 mg/dl (1.8-2.4); POTASSIUM 4.1 mmol/L (3.5-5.1)
[2017-07-15] MEDS ORDERED: KETOROLAC TROMETHAMINE 30 MG/ML VIAL IV STA (08:54)
[2017-07-15 11:02] VITALS: BP 115/71; PULSE 63; TEMP 36.6; O2SAT 100
[2017-07-15] MEDS ORDERED: IBUP-1428 PO (11:07)
--- NOTE | 2017-07-15 11:10 | Discharge Instructions ---
Discharge Instructions Date of Service Jul 15, 2017. Admission Reason for Admission: Acute Renal Failure Discharge Discharge Diagnosis / Problem: Acute renal failure, costochondritis Discharge Goals Goal(s): Decrease discomfort Activity Recommendations Activity Limitations: per Instructions/Follow-up section . Instructions / Follow-Up Instructions / Follow-Up Please take Ibuprofen as needed for severe chest pain. You have a follow-up appointment with Dr. Minaya on 07/19 @ 12:25pm for follow- up from this hospitalization. Please bring all discharge paperwork with you to this appointment. It was a pleasure taking care of you! Call if you have any questions or problems. You can reach a [place] campusist on duty at [facility] 24 hours a day by calling [phone]. Take care of yourself. Candie Kta DO [facility] Hospitalist Current Hospital Diet Patient's current hospital diet: Regular Diet Discharge Diet Recommended Diet: Regular Diet Procedures Procedures Performed: None. Pending Studies Studies pending at discharge: yes List of pending studies: Urine THC metabolites Medical Emergencies . Who to Call and When: Medical Emergencies: If at any time you feel your situation is an emergency, please call 911 immediately. . Non-Emergent Contact Non-Emergency issues call your: Primary Care Provider . . "Provider Documentation" section prepared by Candie Kat. . VTE Core Measure Inpt VTE Proph given/why not?: Treatment not indicated
--- NOTE | 2017-07-15 11:23 | Discharge Summary ---
Discharge Summary Date of Service Jul 15, 2017. Discharge Summary Admission Date: Jul 13, 2017 at 19:09 Discharge Date: Jul 15, 2017 Discharge Disposition: Home Principal Diagnosis: Hyperemesis-resolved Costochondritis WADE-resolved Marajuana use Nicotine use-vaporizer Procedures: None Vaccinations: None. Consultations: GI-Mad[facility]yn Pending Studies/Follow-Up: see instructions below Medication Reconciliation New Medications: Ibuprofen (Motrin) 800 Mg Tab 800 MG PO TID PRN for Pain for 10 Days, #30 TAB Discontinued Medications: Ciprofloxacin (Ciprofloxacin HCl) 500 Mg Tab 500 MG PO BID Admission Information HPI (per Admitting provider): This is a 27 year old male with PMH of possible chlamydia infection in March, presents today to the ER due to one day history of RUQ abdominal pain and significant nausea/vomiting. States he went to his PCP yesterday for a nonspecific R sided rib and abdominal pain. He had lab work done at that time; showing no significant findings. RUQ U/S was also done showing no signs of acute cholecystitis. Patient states this morning he had significant vomiting/ nausea; cannot keep anything down including the contrast for his CT that was done in the ER. Creatinine noted to be significantly elevated at 2.3. Does not take any medications. Denies eating anything unusual. No travel history. Does occasionally use marijuana, but states last use was about one month prior. Drinks EtOH socially. Denies any other drug use. No fevers/chills. Physical Exam (per Admitting): General Appearance: no apparent distress Head: normocephalic, atraumatic Eyes: normal inspection ENT: hearing grossly normal Respiratory/Chest: lungs clear, normal breath sounds, no respiratory distress, no accessory muscle use Cardiovascular: regular rate, rhythm, no edema, no murmur Abdomen/GI: normal bowel sounds, soft, + tenderness (mild tenderness at the RUQ, worse with inspiration) Extremities/Musculoskelatal: normal capillary refill, no pedal edema Neurologic/Psych: no motor/sensory deficits, alert, normal mood/affect Skin: normal color Lymphatic: no adenopathy Hospital Course This is a 27 year old who presents with nausea/vomiting and RUQ abdominal pain. He began with RUQ/lower rib pain that was dull on Sun. 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 He went to see PCP who gave a course of cipro, checked him for GC and chlamydia both which were negative, and performed a RUQ us which revealed no evidence of cholecystitis or cholelithiasis but did reveal some biliary sludge. Later that night he experienced chills and began vomiting and subsequently presented the following day to the ER intolerant of PO. He had no fevers, no recent MJ use (last was 4 weeks ago and he denies lacing it with anything or using other illicit drugs), and denies sick contacts or eating bad food. He has a long-standing h/o heartburn and took PPI in the past but is not on this any longer. Today, after bowel rest and some IVF, he is feeling better and tolerating clear liquids but still reports some sharp chest pain. On examination there is no rash present and his intercostals are exquisitely tender. This is consistent with costochondritis and with his reports of increased pain with deep breathing. He is low risk for PE and ACS, although those etiologies were considered. He is athletic and has been working out without a worsening of his chest pain. Other etiologies include but are not limited to gastric or duodenal ulcer, viral gastritis, other biliary tract disease, pleuritis, MJ use, vaporizer cigarette use, pericarditis or myositis all which were either ruled out or considered less likely. 1. Hyperemesis-resolved and tolerating regular diet. 2. RUQ/R chest pain-consistent with hyperemesis and resulting costochondritis, however, other pathologies are possible as above. As patient is improved, will defer further workup at this time. Counseled to avoid nicotine vaporizer and MJ in the future because of health risks. If pain does not resolve in next week would consider continued workup as outpatient. 3. WADE-likely 2/2 dehydration and vomiting. IVFs ongoing and creat has improved from 2.3 to 1.2. 4. Marajuana use-hyperemesis may be related to use. Counseled to avoid this and smoking nicotine vaporizer as both are hazardous to his health. He verbalized understanding. On day of discharge he was tolerating PO, hemodynamically stable and afebrile and was ambulatory. He denied any chest pain, and as it was intermittent and improved, sending him home with PRN Motrin to use as needed. Physical exam was unremarkable aside from the decreased sternal tenderness to palpation on the right anterior chest. Sent home in stable condition with close PCP follow-up. Total time spent on discharge = 60 minutes This includes examination of the patient, discharge planning, medication reconciliation, and communication with other providers. Discharge Instructions [facility] [address] [place] [address] Discharge Medical Patient Name: Jordan Machado Unit Number: [id number] Date of : 1990 Patient Status: Admitted Inpatient Attending Doctor: Candie Kat DO DI: Medical v4 Discharge Instructions Date of Service Jul 15, 2017. Admission Reason for Admission: Acute Renal Failure Discharge Discharge Diagnosis / Problem: Acute renal failure, costochondritis Discharge Goals Goal(s): Decrease discomfort Activity Recommendations Activity Limitations: per Instructions/Follow-up section . Instructions / Follow-Up Instructions / Follow-Up Please take Ibuprofen as needed for severe chest pain. You have a follow-up appointment with Dr. Minaya on 07/19 @ 12:25pm for follow- up from this hospitalization. Please bring all discharge paperwork with you to this appointment. It was a pleasure taking care of you! Call if you have any questions or problems. You can reach a [facility] hospitalist on duty at [facility] 24 hours a day by calling [phone]. Take care of yourself. Candie Kat DO [facility] Hospitalist Current Hospital Diet Patient's current hospital diet: Regular Diet Discharge Diet Recommended Diet: Regular Diet Procedures Procedures Performed: None. Pending Studies Studies pending at discharge: yes List of pending studies: Urine THC metabolites Medical Emergencies . Who to Call and When: Medical Emergencies: If at any time you feel your situation is an emergency, please call 911 immediately. . Non-Emergent Contact Non-Emergency issues call your: Primary Care Provider . . "Provider Documentation" section prepared by Candie Kat. . VTE Core Measure Inpt VTE Proph given/why not?: Treatment not indicated Additional Copies To Jose Minaya M.D.
== END 2017-07-15 11:36 | disposition home or self-care (01) | DRG 206 ==
LOC: C.EDB 12:48 → C.MS4W 19:09 → CANRESERV 19:23 → ENRESERV 19:23 → CANRESERV 19:30 → ENRESERV 19:30
PROVIDERS: ADMIT Family Medicine; ATTEND Hospitalist
DX: M94.0 Chondrocostal junction syndrome [Tietze] (principal); N17.9 Acute kidney failure, unspecified; F17.290 Nicotine dependence, other tobacco product, uncomplicated; F12.10 Cannabis abuse, uncomplicated; E86.0 Dehydration